=== PATIENT | female | born 1980 | race Caucasian/White ===

== ENCOUNTER 2022-11-07 21:54 | Emergency (ER) | payer OTHER ==
[~2022-11-07] VITALS: Ht 165.1 cm; Wt 65.8 kg
--- OUTSIDE RECORDS SUMMARY | ~2022-11-07 | XMS | Continuity of Care Document ---
Demographics + + + | Address | [address] | | | [place] [address] | + + + | Preferred Language | Unknown | + + + | Marital Status | | + + + | Mosque Affiliation | Unknown | + + + | Race | White | + + + | Ethnic Group | Unknown | + + + Author + + + | Author | [facility] | + + + | Organization | [facility] | + + + | Address | [address] | | | [place] [address] | + + + | Phone | | + + + Care Team Providers + + + + | Care Weaver Dobby Loom Name | Role | Phone | + + + + Unavailable | Unavailable | + + + + Allergies No information. Encounters No information. Functional Status No information. Immunizations No information. Medications No information. Problems + + + + | date | description | facility | + + + + | 2022-08-02 10:22 | MAMMOGRAPHIC | [facility] | | | MICROCALCIFICATION FOUND ON | | | | DX IMAGIN | | + + + + | 2022-08-02 10:22 | MAMMOGRAPHIC CALCIFCN | [facility] | | | FOUND ON DIAGNOSTI | | + + + + | 2022-08-02 10:22 | OTH ABN AND INCONCLUSIVE | [facility] | | | FINDINGS ON DX IMAGING OF | | | | BREAST | | + + + + Procedures No information. Results/Labs No information. Social History No information. Vital Signs No information."
--- OUTSIDE RECORDS SUMMARY | ~2022-11-07 | XMS | Continuity of Care Document ---
Demographics + + + | Address | [address] | | | [place] [address] | + + + | Preferred Language | Unknown | + + + | Marital Status | | + + + | Sikhism Affiliation | Unknown | + + + | Race | White | + + + | Ethnic Group | Unknown | + + + Author + + + | Author | [facility] | + + + | Organization | [facility] | + + + | Address | [address] | | | [place] [address] | + + + | Phone | | + + + Care Team Providers + + + + | Care Upholsterer Helper Name | Role | Phone | + [...]
--- OUTSIDE RECORDS SUMMARY | 2022-11-07 21:58 | XMS ---
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 EKd VISIT COUNT (12 MO.) 1 KATERINE Amanda TOTAL 1 NOTE: Visits indicate total known visits. ED/UCC VISIT TRACKING (12 MO.) 11/07/2022 21:[address] [facility] [place] TYPE: Emergency COMPLAINT: - SOB, POSS COVID INPATIENT VISIT TRACKING (12 MO.) No inpatient visits to display in this time frame [email or web address]
[2022-11-07 22:26] LABS: BASOPHILS 0.5 % (0-2); EOSINOPHILS 0.6 % (0-6); HEMATOCRIT 42.2 % (35.0-50.0); HEMOGLOBIN 13.9 g/dL (12.0-18.0); LYMPHOCYTES 35.2 % (24-44); MCH 32.3 (27-36); MCHC 33.1 g/dl (30-36); MCV 97.8 fl (81-99); MONOCYTES 0.7 % (0-12); PLATELET COUNT 235 K/uL (140-440); RBC 4.31 M/ul (4.3-5.7); RDW 12.8 (10.5-15.0)
[2022-11-07 22:41] LABS: ALBUMIN 3.4 g/dL (3.4-5.0); ALBUMIN/GLOBULIN RATIO 0.94 (1.1-2.4); ANION GAP 16.6 (7-21); BILIRUBIN, TOTAL 0.2 ng/dL (0.2-1.0); BUN/CREATININE RATIO 11.3 (6.0-28.6); CALCIUM 8.9 mg/dL (8.5-10.1); CREATININE, SERUM 1.15 mg/dL (0.55-1.02); POTASSIUM 3.6 mmol/L (3.5-5.1)
[2022-11-07 23:05] LABS: INFLUENZA B NAA NEGATIVE (NEGATIVE); RESPIRATORY SYNCYTIAL VIR NAA NEGATIVE (NEGATIVE)
[2022-11-07 23:25] LABS: BILIRUBIN, URINE NEGATIVE (negative); BLOOD/HGB, URINE NEGATIVE (Negative); KETONE, URINE NEGATIVE (Negative); LEUK ESTERASE, URINE NEGATIVE (negative); NITRITE, URINE NEGATIVE (negative)
[2022-11-07] MEDS ORDERED: CYCLOBENZAPRINE10 MG PO (23:31)
[2022-11-07 23:55] VITALS: BP 117/69
== END 2022-11-08 | disposition home or self-care (01) ==
LOC: ED 21:54
PROVIDERS: Family Medicine
DX: U07.1 COVID-19 (principal); Z88.0 Allergy status to penicillin
CPT/HCPCS: 36415; 80053; 81003; 85025; 87502; 96374; 96375; 99283-25; C9803; J1885; J2405; J7121; U0002